=== PATIENT | female | born 1990 | race African-American/Black ===

== ENCOUNTER 2022-09-01 04:06 | Day surgery (SDC) | payer OTHER ==
[2022-08-28 12:56] VITALS: BMI 33.5
[2022-09-01] MEDS ORDERED: PROPOFOL 40 ML ONE (07:01)
[2022-09-01] MEDS ORDERED: LIDOCAINE HCL/PF 2% SDV 5ML VIAL ONE (07:02)
[2022-09-01] MEDS ORDERED: ePHEDrine SULFATE 50 MG/1 ML AMPULE ONE (07:02)
[2022-09-01] MEDS ORDERED: ROCURONIUM BROMIDE 50 MG/5 ML SYRINGE ONE (07:03)
[2022-09-01] MEDS ORDERED: SUCCINYLCHOLINE CHLORIDE 200 MG/10 ML SYRINGE ONE (07:03)
[2022-09-01] MEDS ORDERED: ceFAZolin SODIUM 1 GM VIAL ONE ×2 (07:04)
[2022-09-01] MEDS ORDERED: DEXAMETHASONE SOD PHOSPHATE 4 MG/1 ML VIAL ONE (07:04)
[2022-09-01] MEDS ORDERED: ONDANSETRON 4 MG/2 ML VIAL ONE (07:04)
[2022-09-01] MEDS ORDERED: BUPIVACAINE HCL/PF 0.25% (2.5MG/ML) 10 ML VIAL ONE (07:35)
[2022-09-01] MEDS ORDERED: METHYLENE BLUE 50 MG/10 ML AMPUL ONE (07:35)
[2022-09-01] MEDS ORDERED: DEXMEDETOMIDINE HCL 200 MCG/2 ML IVPB ONE (07:55)
[2022-09-01] MEDS ORDERED: MIDAZOLAM HCL 2 MG/2 ML SINGLE DOSE VIAL ONE (07:56)
[2022-09-01] MEDS ORDERED: ceFAZolin SODIUM 1 GM VIAL IVPB ONE (08:44)
[2022-09-01] MEDS ORDERED: GLYCOPYRROLATE 0.2 MG/1 ML VIAL ONE ×2 (09:59→10:00)
[2022-09-01] MEDS ORDERED: NEOSTIGMINE METHYLSULFATE 0.5 MG/1 ML - 10 ML MDV ONE (09:59)
[2022-09-01] MEDS ORDERED: BUPIVACAINE HCL/PF 2.5 MG/ML - 30 ML VIAL IJ ONE (10:57)
[2022-09-01] MEDS ORDERED: PROPOFOL 20 ML ONE (12:30)
[2022-09-01] MEDS ORDERED: ACETAMINOPHEN INJECTION 100 ML IVPB ONE (12:53)
[2022-09-01] MEDS ORDERED: ACETAMINOPHEN 1000 MG/100 ML BAG IVPB ONE ×2 (12:55→13:09)
[2022-09-01] MEDS ORDERED: ONDANSETRON 4 MG/2 ML VIAL IVPUSH PRN (13:10)
[2022-09-01] MEDS ORDERED: oxyCODONE HCL 5 MG TABLET PO PRN (13:10)
[2022-09-01] MEDS ORDERED: LACTATED RINGERS SOLUTION 1,000 ML IV SCH (13:15)
[2022-09-01 15:28] VITALS: RESP 18
[2022-09-01] MEDS ORDERED: oxyCODONE HCL 5 MG TABLET ONE (17:06)
[2022-09-01 17:30] VITALS: BP 120/80; PULSE 102; TEMP 98.4
== END 2022-09-01 17:37 | disposition home or self-care (01) ==
LOC: JASU-SURG 04:06 → EDBD 08:00 → JASU-SURG 17:37
PROVIDERS: ATTEND Plastic Surgery
PROC: 0HBV0ZZ Excision of Bilateral Breast, Open Approach (ICD-10-PCS; principal; 2022-09-01 08:00)
DX: N62 Hypertrophy of breast (principal); M54.2 Cervicalgia; M25.512 Pain in left shoulder; M25.511 Pain in right shoulder; M54.89 Other dorsalgia
CPT/HCPCS: 81025; 86850; 86900; 86901; 88305-TC; 94760; Q9968

== ENCOUNTER 2024-01-25 04:30 | Day surgery (SDC) | payer OTHER ==
[2024-01-25] MEDS ORDERED: LIDOCAINE HCL/PF 2% SDV 5ML VIAL ONE (08:48)
[2024-01-25] MEDS ORDERED: MIDAZOLAM HCL 2 MG/2 ML SINGLE DOSE VIAL ONE (08:48)
[2024-01-25] MEDS ORDERED: PROPOFOL 20 ML ONE (08:48)
[2024-01-25] MEDS ORDERED: ceFAZolin SODIUM 1 GM VIAL ONE (09:47)
[2024-01-25] MEDS ORDERED: DEXAMETHASONE SOD PHOSPHATE 4 MG/1 ML VIAL ONE (09:47)
[2024-01-25] MEDS: ceFAZolin SODIUM 1 GM VIAL IVPB ONE (09:50)
[2024-01-25] MEDS ORDERED: BUPIVACAINE HCL/PF 0.5% (5MG/ML) 10 ML VIAL ONE (10:08)
[2024-01-25] MEDS: BUPIVACAINE HCL/PF 0.5% (5MG/ML) 10 ML VIAL IJ ONE (10:29)
[2024-01-25] MEDS ORDERED: ONDANSETRON 4 MG/2 ML VIAL ONE (11:10)
[2024-01-25] MEDS ORDERED: KETOROLAC TROMETHAMINE 30 MG/1 ML VIAL ONE (11:10)
[2024-01-25] MEDS ORDERED: ONDANSETRON 4 MG/2 ML VIAL IVPUSH PRN (12:16)
[2024-01-25] MEDS ORDERED: oxyCODONE HCL 5 MG TABLET PO PRN ×2 (12:16)
[2024-01-25] MEDS ORDERED: PROMETHAZINE HCL 25 MG/1 ML VIAL IVPB PRN (12:16)
[2024-01-25] MEDS: ACETAMINOPHEN 1000 MG/100 ML BAG IVPB ONE (12:19)
[2024-01-25] MEDS ORDERED: LACTATED RINGERS SOLUTION 1,000 ML IV SCH (12:30)
[2024-01-25 13:41] VITALS: RESP 18
[2024-01-25] MEDS ORDERED: oxyCODONE HCL 5 MG TABLET ONE (14:16)
[2024-01-25] MEDS: oxyCODONE HCL 5 MG TABLET PO ONE (14:18)
[2024-01-25 14:34] VITALS: TEMP 97.6
[2024-01-25 16:31] VITALS: BP 136/68; PULSE 83
== END 2024-01-25 15:25 | disposition home or self-care (01) ==
LOC: JASU-SURG 04:30
PROVIDERS: ATTEND Plastic Surgery
PROC: 0HB5XZZ Excision of Chest Skin, External Approach (ICD-10-PCS; principal; 2024-01-25 09:00)
DX: L91.0 Hypertrophic scar (principal); N60.11 Diffuse cystic mastopathy of right breast
CPT/HCPCS: 81025; 94760; J0131